=== PATIENT | female | born 1975 ===

== ENCOUNTER 2017-06-09 08:28 | Emergency (ER) | payer SELFPAY ==
[2017-06-09 08:52] VITALS: BP 150/91
--- NOTE | 2017-06-09 09:08 | ED ---
Throat Pain/Nasal Congestion - HPI Summary HPI Summary: 42 yr old female with dental pain. Onset of symptoms over the weekend, with pain in left mandibular tooth, gingival swelling and mild facial swelling. pain is moderate. She has a dentist already and will be calling them today. No other complaints. - History of Current Complaint Chief Complaint: UCDentalProblem Time Seen by Provider: 06/09/17 08:53 - Allergies/Home Medications Allergies/Adverse Reactions: Allergies Allergy/AdvReac Type Severity Reaction Status Date / Time No Known Allergies Allergy Verified 06/09/17 08:46 PMH/Surg Hx/FS Hx/Imm Hx Endocrine/Hematology History: Reports: Hx Thyroid Disease - Surgical History Surgery Procedure, Year, and Place: tubal ligation Infectious Disease History: No Infectious Disease History: Denies: Traveled Outside the [place] in Last 30 Days - Social History Alcohol Use: Rare Substance Use Type: Reports: None Smoking Status (MU): Former Smoker Review of Systems Constitutional: Negative Positive: Dental Pain All Other Systems Reviewed And Are Negative: Yes Physical Exam Triage Information Reviewed: Yes Vital Signs On Initial Exam: Initial Vitals Temp Pulse Resp BP Pulse Ox 97.4 F 60 16 150/91 99 06/09/17 08:44 06/09/17 08:44 06/09/17 08:44 06/09/17 08:44 06/09/17 08:44 Vital Signs Reviewed: Yes Appearance: Positive: Well-Appearing, No Pain Distress Skin: Positive: Warm Head/Face: Positive: Normal Head/Face Inspection Eyes: Positive: EOMI ENT: Positive: Other - dental pain tenderness tooth number 20 with decay, gingival swelling. No sublingual swelling, no tongue elevation. No cervical adenopathy. Dental: Positive: Gross Decay/Caries @ - tooth 20 Neck: Positive: Supple, Nontender, No Lymphadenopathy Respiratory/Lung Sounds: Positive: Clear to Auscultation, Breath Sounds Present Cardiovascular: Positive: RRR. Negative: Murmur Abdomen Description: Positive: Nontender Bowel Sounds: Positive: Present Musculoskeletal: Positive: Strength/ROM Intact Neurological: Positive: Sensory/Motor Intact, Alert, Oriented to Person Place, Time, CN Intact II-III Psychiatric: Positive: Normal - Billy Coma Scale Best Eye Response: 4 - Spontaneous Best Motor Response: 6 - Obeys Commands Best Verbal Response: 5 - Oriented Coma Scale Total: 15 Diagnostics - Vital Signs Vital Signs Temp Pulse Resp BP Pulse Ox 06/09/17 08:44 97.4 F 60 16 150/91 99 - Laboratory Lab Statement: Any lab studies that have been ordered have been reviewed, and results considered in the medical decision making process. EENT Course/Dx - Course Course Of Treatment: 42 yr old female with dental infection. Rx with Augmentin. - Diagnoses Provider Diagnoses: Dental infection, Hypertension Discharge - Discharge Plan Condition: Good Disposition: HOME Prescriptions: Amoxicillin/Clavulanate TAB* [Augmentin TAB 875*] 875 mg PO BID #20 tab Patient Education Materials: Dental Abscess (ED), Hypertension (ED) Referrals: Kelly Lynne MD [Primary Care Provider] - 1 Day
== END 2017-06-09 09:05 | disposition home or self-care (01) ==
LOC: UCCORT 08:28
DX: K04.7 Periapical abscess without sinus (principal); I10 Essential (primary) hypertension; Z87.891 Personal history of nicotine dependence
CPT/HCPCS: 99212; G0463